=== PATIENT | female | born 1970 | race Caucasian/White ===

== ENCOUNTER 2018-12-01 07:37 | Day surgery (SDC) | payer OTHER, BC ==
[2018-12-01] MEDS: ACETAMINOPHEN 500 MG TAB PO (06:30)
[2018-12-01] MEDS ORDERED: CEFAZOLIN 2 GM/50 ML (PMX) 50 ML IVPB (08:00)
[2018-12-01] MEDS ORDERED: BUPIVACAINE 0.5% (SDV) 30 ML INJ (09:10)
[2018-12-01] MEDS ORDERED: LIDOCAINE 2% (MDV) 20 ML INJ (09:10)
[2018-12-01] MEDS: LIDOCAINE 2% (MDV) 20 ML INJ INJ (09:15)
[2018-12-01] MEDS: BUPIVACAINE 0.5% (SDV) 30 ML INJ INJ (09:15)
[2018-12-01] MEDS ORDERED: MEPERIDINE 25 MG INJ IV (09:30)
[2018-12-01] MEDS ORDERED: LABETALOL HCL 20MG INJ IV (09:30)
[2018-12-01] MEDS ORDERED: morphine (1 MG/ML) 10ML SYRINGE IV ×2 (09:30)
[2018-12-01] MEDS ORDERED: FENTAnyl 50 MCG/ML VIAL IV ×2 (09:30)
[2018-12-01] MEDS ORDERED: ALBUTEROL 0.083% (NEB) 2.5 MG/3 ML AMP HHN (09:30)
[2018-12-01] MEDS ORDERED: OXYCODONE/ACETAMINOPHEN (5/325) TAB PO ×2 (09:30)
[2018-12-01] MEDS ORDERED: HYDROmorphONE 1 MG/5 ML IV SYRINGE IV ×2 (09:30)
[2018-12-01] MEDS ORDERED: DIPHENHYDRAMINE 50 MG INJ IV (09:30)
[2018-12-01] MEDS ORDERED: ONDANSETRON 4 MG INJ IV (09:30)
[2018-12-01] MEDS ORDERED: LIDOCAINE 2% (SDV) 5 ML INJ (09:31)
[2018-12-01] MEDS ORDERED: PROPOFOL 40 ML (09:31)
[2018-12-01] MEDS ORDERED: MIDAZOLAM 1 MG/ML 2 ML INJ (09:31)
[2018-12-01] MEDS ORDERED: FENTAnyl 50 MCG/ML VIAL (09:32)
[2018-12-01] MEDS ORDERED: CLINDAMYCIN 600 MG/D5W (PMX) 50 ML IVPB (09:36)
[2018-12-01] MEDS ORDERED: PHENYLephrine (100 MCG/ML) 5ML SYG (09:39)
[2018-12-01] MEDS: POLYMYXIN/BACITRACIN 1L IRRIG IRR (09:50)
== END 2018-12-01 12:37 | disposition home or self-care (01) ==
LOC: SDS 07:37
DX: D16.31 Benign neoplasm of short bones of right lower limb (principal); B35.1 Tinea unguium
CPT/HCPCS: 28124; 73630; 73630-LT; 84703; 88304; 88311

== ENCOUNTER 2019-05-31 09:51 | Day surgery (SDC) | payer OTHER ==
[2019-05-31] MEDS ORDERED: POLYMYXIN/BACITRACIN 1L IRRIG (10:50)
[2019-05-31] MEDS ORDERED: SEVOFLURANE 15 MIN (11:00)
[2019-05-31] MEDS ORDERED: ONDANSETRON 4 MG INJ (11:01)
[2019-05-31] MEDS ORDERED: PROPOFOL 20 ML (11:01)
[2019-05-31] MEDS ORDERED: FENTAnyl 50 MCG/ML VIAL (11:01)
[2019-05-31] MEDS ORDERED: MIDAZOLAM 1 MG/ML 2 ML INJ (11:01)
[2019-05-31] MEDS ORDERED: METOCLOPRAMIDE 10 MG INJ (11:02)
[2019-05-31] MEDS ORDERED: ROPIVACAINE 0.2% 20 ML VIAL (11:04)
[2019-05-31] MEDS ORDERED: CLINDAMYCIN 600 MG/D5W (PMX) 50 ML IVPB (11:41)
[2019-05-31] MEDS ORDERED: EPHEDrine 25 MG/5 ML SYG (11:44)
[2019-05-31] MEDS: LIDOCAINE 1% (MPF) 30 ML INJ (11:58)
[2019-05-31] MEDS: BUPIVACAINE 0.5% (SDV) 30 ML INJ (11:58)
[2019-05-31] MEDS ORDERED: PROCHLORPERAZINE 10 MG INJ IV (12:00)
[2019-05-31] MEDS ORDERED: HYDROmorphONE 1 MG/5 ML IV SYRINGE IV (12:00)
[2019-05-31] MEDS ORDERED: OXYCODONE/ACETAMINOPHEN (5/325) TAB PO (12:00)
[2019-05-31] MEDS ORDERED: MEPERIDINE 25 MG INJ IV (12:00)
[2019-05-31] MEDS ORDERED: NALOXONE (0.4 MG/ML) INJ (12:36)
[2019-05-31] MEDS: FENTAnyl 50 MCG/ML VIAL IV ×2 (13:04→13:22)
[2019-05-31] MEDS: ONDANSETRON 4 MG INJ IV (13:04)
[2019-05-31 14:56] LABS: HEPATITIS B SURFACE ANTIGEN NEGATIVE (NEGATIVE)
[2019-05-31 15:13] LABS: HEPATITIS B SURFACE ANTIBODY NEGATIVE (NEGATIVE); HEPATITIS C VIRAL ANTIBODY NEGATIVE (NEGATIVE); HIV 1&2 ANTIBODY NEGATIVE (NEGATIVE)
== END 2019-05-31 14:13 | disposition home or self-care (01) ==
LOC: SDS 09:51
DX: D16.32 Benign neoplasm of short bones of left lower limb (principal); D16.31 Benign neoplasm of short bones of right lower limb; B35.1 Tinea unguium
CPT/HCPCS: 28124; 73630; 73630-LT; 86703; 86706; 86803; 87340; 88304; 88311